=== PATIENT | female | born 1955 | race Caucasian/White ===

== ENCOUNTER 2018-07-03 17:25 | Emergency (ER) | payer BC ==
[2018-07-03 17:37] VITALS: RESP 20; TEMP 96.4
[2018-07-03] MEDS ORDERED: LIDOCAINE 2% W/ EPI MPF 20 ML SOL INFIL ONE (17:55)
[2018-07-03] MEDS ORDERED: TDAP VACCINE 0.5 ML SUS IM ONE ×2 (17:55→17:59)
[2018-07-03] MEDS ORDERED: LIDOCAINE 2% W/ EPI MPF 20 ML SOL ONE (17:59)
[2018-07-03 19:23] VITALS: BP 128/86; PULSE 63; O2SAT 97
== END 2018-07-03 19:20 | disposition home or self-care (01) ==
LOC: ED 17:25
DX: S01.21XA Laceration without foreign body of nose, initial encounter (principal)
CPT/HCPCS: 12011; 90471; 90715; 99284; G0168; A6402